=== PATIENT | female | born 1990 | race Caucasian/White ===

== ENCOUNTER 2018-03-12 18:47 | Emergency (ER) | payer OTHER ==
--- NOTE | 2018-03-12 18:49 | EDPHY ---
H & P Time Seen by Provider: 03/12/18 18:49 HPI/ROS: CHIEF COMPLAINT: Abnormal behavior, nausea and vomiting HISTORY OF PRESENT ILLNESS: The patient is brought in by her mother with a history of abnormal behavior, nausea and vomiting. The patient developed the symptoms on Tuesday morning. She was very lethargic throughout the day. Yesterday she reportedly had ongoing symptoms but was able to get up in the evening watch TV in ED chicken noodle soup before going to bed. The patient has been in her bed all day unable to get up. She reportedly vomited 4 times. The patient does take trazodone for insomnia. She denies any drug or alcohol use. She denies history of fall or trauma. The patient is somnolent in the emergency department. She does appear confused and is felt to be somewhat of an unreliable historian. REVIEW OF SYSTEMS: A comprehensive 10 point review of systems is otherwise negative aside from elements mentioned in the history of present illness. Source: Patient Exam Limitations: No limitations - Physical Exam Exam: General Appearance: Somnolent, arousable, appears confused Eyes: Pupils equal and round no pallor or injection ENT, Mouth: Mucous membranes moist Respiratory: There are no retractions, lungs are clear to auscultation Cardiovascular: Regular rate and rhythm Gastrointestinal: Abdomen is soft and nontender, no masses, bowel sounds normal Neurological: 5/5 strength noted all 4 extremities, unable to pursue patent cranial nerve exam Skin: Warm and dry, no rashes Musculoskeletal: Neck is supple nontender Extremities: symmetrical, full range of motion Constitutional: Initial Vital Signs Temperature (C) 36.6 C 03/12/18 18:49 Heart Rate 101 H 03/12/18 18:49 Respiratory Rate 16 03/12/18 18:49 Blood Pressure 153/97 H 03/12/18 18:49 O2 Sat (%) 94 03/12/18 18:49 O2 Delivery Mode Room Air Allergies/Adverse Reactions: No Known Allergies Allergy (Unverified 01/06/12 14:20) Home Medications: Medication Instructions Recorded Hydrocodone Bit/Acetaminophen 1 tab PO Q4-6PRN #5 tab 01/06/12 [Vicodin 5/500] No Medications [NO HOME 1 ea MISC 01/06/12 MEDICATIONS] Medical Decision Making - Diagnostics Imaging Results: Imaging Impressions Head CT 06/03/18 19:03 Impression: 1. Normal CT brain without contrast. 2. Consider MRI of the brain, if there is continued clinical concern. Findings and recommendations discussed with Emergency Department physician, Dewey Molina at 20:11 hour, 03/12/2018. Final report concurs with initial preliminary interpretation. ED Course/Re-evaluation: The patient presents to the ED with acute confusion. She was noted to be afebrile and had stable vital signs. She had no obvious traumatic injury noted on exam. Given the patient's acute confusion a noncontrast head CT scan was performed which demonstrated no evidence of an intracranial hemorrhage or mass. The patient had an IV established. Laboratory studies demonstrated normal CBC, serum chemistries however a markedly elevated blood alcohol level of .440. Upon further questioning, the patient does admit to recently relapsing from alcohol dependence. She reports that she recently had been in inpatient alcohol rehab. She denies any suicidal or homicidal ideation. She denies additional co ingestion. The patient is accompanied by her mother. The patient did consent to have me discussed her current condition with her mother. Her mother is knowledgeable about the patient's problems with alcohol. She does not have concerns for the patient being suicidal. The patient is currently living with her mother and she feels that she can safely observe her at home. They are acquainted with the outpatient services available for alcohol dependence and will explore this is an outpatient. Plan will be for further observation in the ED. At 9 o'clock in the evening the patient is resting comfortably in the room. 9:30 p.m.: The patient is ambulatory to the restroom. The patient will be discharged home with her mother who is comfortable keeping a close eye on her. All alcohol will be removed from the house. Differential Diagnosis: Differential diagnosis considered includes meningitis, intracranial hemorrhage, metabolic abnormality, alcohol intoxication, drug overdose - Data Points Laboratory Results: Laboratory Results 03/12/18 18:55 03/12/18 18:55 03/12/18 03/12/18 03/12/18 20:25 18:55 18:55 WBC RBC Hgb Hct MCV MCH MCHC RDW Plt Count MPV Neut % (Auto) Lymph % (Auto) Geary % (Auto) Eos % (Auto) Baso % (Auto) Nucleat RBC Rel Count Absolute Neuts (auto) Absolute Lymphs (auto) Absolute Monos (auto) Absolute Eos (auto) Absolute Basos (auto) Absolute Nucleated RBC Immature Gran % Immature Gran # Sodium Potassium Chloride Carbon Dioxide Anion Gap BUN Creatinine Estimated GFR Glucose Calcium Total Bilirubin Conjugated Bilirubin Unconjugated Bilirubin AST ALT Alkaline Phosphatase Total Protein Albumin Lipase Beta HCG, Qual NEGATIVE Urine Color YELLOW Urine Appearance CLEAR Urine pH 5.0 (5.0-7.5) Ur Specific [place] 1.014 (1.002-1.030) Urine Protein NEGATIVE (NEGATIVE) Urine Ketones 1+ H (NEGATIVE) Urine Blood 1+ H (NEGATIVE) Urine Nitrate NEGATIVE (NEGATIVE) Urine Bilirubin NEGATIVE (NEGATIVE) Urine Urobilinogen NEGATIVE EU EU (0.2-1.0) Ur Leukocyte Esterase NEGATIVE (NEGATIVE) Urine RBC 3-5 /hpf H /hpf (0-3) Urine WBC 1-3 /hpf /hpf (0-3) Ur Epithelial Cells TRACE /lpf /lpf (NONE-1+) Urine Mucus TRACE /lpf /lpf (NONE-1+) Urine Glucose NEGATIVE (NEGATIVE) Urine Opiates Screen NEGATIVE (NEGATIVE) Urine Barbiturates NEGATIVE (NEGATIVE) Ur Phencyclidine Scrn NEGATIVE (NEGATIVE) Ur Amphetamine Screen NEGATIVE (NEGATIVE) U Benzodiazepines Scrn NEGATIVE (NEGATIVE) Urine Cocaine Screen NEGATIVE (NEGATIVE) U Marijuana (THC) Screen NEGATIVE (NEGATIVE) Ethyl Alcohol 404 mg/dL H* mg/dL (0-10) 03/12/18 03/12/18 18:55 18:55 WBC 7.83 10^3/uL 10^3/uL (3.80-9.50) RBC 5.67 10^6/uL H 10^6/uL (4.18-5.33) Hgb 17.3 g/dL H g/dL (12.6-16.3) Hct 50.5 % H % (38.0-47.0) MCV 89.1 fL fL (81.5-99.8) MCH 30.5 pg pg (27.9-34.1) MCHC 34.3 g/dL g/dL (32.4-36.7) RDW 12.2 % % (11.5-15.2) Plt Count 385 10^3/uL 10^3/uL (150-400) MPV 9.3 fL fL (8.7-11.7) Neut % (Auto) 56.1 % % (39.3-74.2) Lymph % (Auto) 39.2 % % (15.0-45.0) Geary % (Auto) 4.0 % L % (4.5-13.0) Eos % (Auto) 0.4 % L % (0.6-7.6) Baso % (Auto) 0.0 % L % (0.3-1.7) Nucleat RBC Rel Count 0.0 % % (0.0-0.2) Absolute Neuts (auto) 4.40 10^3/uL 10^3/uL (1.70-6.50) Absolute Lymphs (auto) 3.07 10^3/uL H 10^3/uL (1.00-3.00) Absolute Monos (auto) 0.31 10^3/uL 10^3/uL (0.30-0.80) Absolute Eos (auto) 0.03 10^3/uL 10^3/uL (0.03-0.40) Absolute Basos (auto) 0.00 10^3/uL L 10^3/uL (0.02-0.10) Absolute Nucleated RBC 0.00 10^3/uL 10^3/uL (0-0.01) Immature Gran % 0.3 % % (0.0-1.1) Immature Gran # 0.02 10^3/uL 10^3/uL (0.00-0.10) Sodium 146 mEq/L H mEq/L (135-145) Potassium 4.3 mEq/L mEq/L (3.3-5.0) Chloride 103 mEq/L mEq/L (97-110) Carbon Dioxide 20 mEq/l L mEq/l (22-31) Anion Gap 23 mEq/L H mEq/L (8-16) BUN 9 mg/dL mg/dL (7-23) Creatinine 0.7 mg/dL mg/dL (0.6-1.0) Estimated GFR > 60 Glucose 81 mg/dL mg/dL (70-100) Calcium 9.2 mg/dL mg/dL (8.5-10.4) Total Bilirubin 0.7 mg/dL mg/dL (0.1-1.4) Conjugated Bilirubin 0.4 mg/dL mg/dL (0.0-0.5) Unconjugated Bilirubin 0.3 mg/dL mg/dL (0.0-1.1) AST 40 IU/L IU/L (14-46) ALT 38 IU/L IU/L (9-52) Alkaline Phosphatase 73 IU/L IU/L (38-126) Total Protein 7.9 g/dL g/dL (6.3-8.2) Albumin 4.7 g/dL g/dL (3.5-5.0) Lipase 172 IU/L IU/L (23-300) Beta HCG, Qual Urine Color Urine Appearance Urine pH Ur Specific [place] Urine Protein Urine Ketones Urine Blood Urine Nitrate Urine Bilirubin Urine Urobilinogen Ur Leukocyte Esterase Urine RBC Urine WBC Ur Epithelial Cells Urine Mucus Urine Glucose Urine Opiates Screen Urine Barbiturates Ur Phencyclidine Scrn Ur Amphetamine Screen U Benzodiazepines Scrn Urine Cocaine Screen U Marijuana (THC) Screen Ethyl Alcohol Medications Given: Discontinued Medications Sodium Chloride (Ns) 1,000 mls @ 0 mls/hr IV ONCE ONE PRN Reason: Wide Open Stop: 03/12/18 20:03 Last Admin: 03/12/18 20:03 Dose: 1,000 mls Departure - Departure Disposition: Home, Routine, Self-Care Clinical Impression: Alcohol intoxication Condition: Good Instructions: Alcohol Intoxication (ED) Additional Instructions: 1. You have been given the number of the [facility] here [place] if you desire further assistance with alcohol dependence. 2. Return to the ED if you are having any concerns. Referrals: [facility] [Outside] - As per Instructions
[2018-03-12 19:09] LABS: PLATELET COUNT 385 10^3/uL (150-400)
[2018-03-12] MEDS ORDERED: NS 1,000 ML IV ONE (20:02)
[2018-03-12 22:19] VITALS: BP 116/71
== END 2018-03-12 22:18 | disposition home or self-care (01) ==
LOC: EDUNIT#
DX: F10.129 Alcohol abuse with intoxication, unspecified (principal)
CPT/HCPCS: 80305; G0480